=== PATIENT | male | born 1970 | race Caucasian/White ===

== ENCOUNTER 2019-12-01 17:08 | Emergency (ER) | payer OTHER ==
[~2019-12-01] VITALS: Ht 190.5 cm; Wt 122.5 kg
[2019-12-01 17:27] VITALS: Ht 190.5 cm; Wt 122.5 kg
[2019-12-01 19:35] VITALS: BP 140/94
== END 2019-12-01 19:35 | disposition home or self-care (01) ==
LOC: ED 17:08
DX: S53.104A Unspecified dislocation of right ulnohumeral joint, initial encounter (principal); Z88.0 Allergy status to penicillin; W18.40XA Slipping, tripping and stumbling without falling, unspecified, initial encounter; Y93.89 Activity, other specified; Y92.89 Other specified places as the place of occurrence of the external cause; Y99.8 Other external cause status
CPT/HCPCS: J3010; Q0092